=== PATIENT | female | born 1930 | race Native Hawaiian/Other Pacific Islander ===

== ENCOUNTER 2017-02-05 09:17 | Outpatient (CLI) | payer OTHER, BC ==
[~2017-02-05 09:17] MED LIST: ACIPHEX20 MG OR; CHERATUSSIN OR; FLUTICASONE50 MCG; HYZAAR1 TA2 PO; IBU-200200 MG PO; LYRICA50 MG OR; MEIJER ASPIRIN E5 GR OR; VITAMIN C1 CH1 PO
== END 2017-02-05 19:16 | disposition home or self-care (01) ==
LOC: MAMMO 09:17
DX: Z12.31 Encounter for screening mammogram for malignant neoplasm of breast (principal)

== ENCOUNTER 2017-03-26 13:43 | Outpatient (CLI) | payer OTHER, BC | END 2017-03-26 21:13 | disposition home or self-care (01) | LOC: RAD 13:43 | DX: M25.561 Pain in right knee (principal) ==

== ENCOUNTER 2018-02-07 09:36 | Outpatient (CLI) | payer OTHER, BC | END 2018-02-07 23:24 | disposition home or self-care (01) | LOC: MAMMO 09:36 | DX: Z12.31 Encounter for screening mammogram for malignant neoplasm of breast (principal) ==

== ENCOUNTER 2018-08-19 12:08 | Outpatient (CLI) | payer OTHER, BC | END 2018-08-19 23:25 | disposition home or self-care (01) | LOC: RAD 12:08 | DX: R05 Cough (principal) ==

== ENCOUNTER 2019-03-13 09:43 | Outpatient (CLI) | payer OTHER, BC | END 2019-03-13 20:19 | disposition home or self-care (01) | LOC: MAMMO 09:43 | DX: Z12.31 Encounter for screening mammogram for malignant neoplasm of breast (principal) ==

== ENCOUNTER 2019-04-04 14:20 | Outpatient (CLI) | payer OTHER, BC | END 2019-04-04 21:21 | disposition home or self-care (01) | LOC: RAD 14:20 | DX: J86.9 Pyothorax without fistula (principal); J43.8 Other emphysema ==

== ENCOUNTER 2020-01-08 10:53 | Outpatient (CLI) | payer OTHER, BC | END 2020-01-08 21:01 | disposition home or self-care (01) | LOC: US 10:53 | PROVIDERS: ATTEND Nurse Practitioner Family | DX: R60.0 Localized edema (principal) | CPT/HCPCS: 36415; 82550; 82553; 83880; 84484 ==

== ENCOUNTER 2020-06-23 09:14 | Outpatient (CLI) | payer BC | END 2020-06-23 21:50 | disposition home or self-care (01) | LOC: US 09:14 → RESP 10:30 → US 21:50 | PROVIDERS: ATTEND Nurse Practitioner Family | DX: I10 Essential (primary) hypertension (principal); Z13.820 Encounter for screening for osteoporosis; N95.8 Other specified menopausal and perimenopausal disorders ==

== ENCOUNTER 2021-05-19 07:15 | Outpatient (CLI) | payer BC ==
[~2021-05-19] VITALS: Ht 162.6 cm; Wt 90.7 kg
== END 2021-05-19 19:55 | disposition home or self-care (01) ==
LOC: NM 07:15
PROVIDERS: ATTEND Family Medicine
DX: I10 Essential (primary) hypertension (principal); Z79.899 Other long term (current) drug therapy
CPT/HCPCS: A9500; J2785

== ENCOUNTER 2021-07-06 08:56 | Outpatient (CLI) | payer BC | END 2021-07-06 18:52 | disposition home or self-care (01) | LOC: US 08:56 | PROVIDERS: ATTEND Nurse Practitioner Family | DX: R74.01 Elevation of levels of liver transaminase levels (principal) ==